=== PATIENT | male | born 1940 | race Caucasian/White ===

== ENCOUNTER 2019-07-30 18:03 | Observation (INO) | payer OTHER ==
[~2019-07-30] VITALS: Ht 177.8 cm; Wt 63.5 kg
[2019-07-30 19:40] LABS: APPEARANCE,URINE CLOUDY (CLEAR); BILIRUBIN,URINE NEGATIVE (NEGATIVE); GLUCOSE, URINE (UA) >=1000 mg/dL (NEGATIVE); KETONES,URINE >=80 mg/dL (NEGATIVE); LEUKOCYTE ESTERASE ,URINE NEGATIVE (NEGATIVE); NITRATE,URINE NEGATIVE (NEGATIVE); OCCULT BLOOD,URINE LARGE (NEGATIVE); PROTEIN,URINE >=300 mg/dL (NEGATIVE); UROBILINOGEN,URINE 0.2 mg/dL (0.2-1.0)
[2019-07-30 19:45] LABS: COLOR,URINE RED (YELLOW)
[2019-07-30 19:47] LABS: BACTERIA,URINE Rare /HPF (None Seen); RBC,URINE Full Field /HPF (0-1); SQUAMOUS EPITHELIAL CELL,UR None Seen /HPF (0-2); WBC,URINE None Seen /HPF (0-1)
[2019-07-30 19:50] LABS: BASOPHILS % (AUTO) 0.6 % (0.0-5.0); EOSINOPHILS % (AUTO) 1.4 % (0.0-8.0); HEMATOCRIT 41.5 % (42-54); LYMPHOCYTES % (AUTO) 17.3 % (21.0-51.0); MEAN CORPUSCULAR HEMOGLOBIN 28.2 pg (27.0-33.0); MEAN CORPUSCULAR HGB CONC 33.3 g/dL (32.0-36.0); MEAN CORPUSCULAR VOLUME 84.9 fL (79-99); NEUTROPHILS % (AUTO) 73.4 % (40.0-77.0); PLATELET COUNT (AUTO) 276 K/uL (130-400); RED BLOOD CELL COUNT(AUTO) 4.89 MIL/uL (4.50-6.20); RED CELL DISTRIBUTION WIDTH 12.1 % (11.0-15.5); WHITE BLOOD COUNT (AUTO) 10.7 K/uL (4.8-10.8)
[2019-07-30 20:07] LABS: INR 0.94 (0.85-1.15); PARTIAL THROMBOPLASTIN TIME 24.3 SEC (26.3-35.5); PROTHROMBIN TIME 9.9 SEC (9.6-11.6)
[2019-07-30 20:08] LABS: ALBUMIN 3.4 g/dL (3.5-5.0); BILIRUBIN,TOTAL 0.4 mg/dL (0.2-1.0); POTASSIUM 4.6 mmol/L (3.5-5.1); TOTAL PROTEIN, SERUM 6.9 g/dL (6.0-8.3)
[2019-07-30] MEDS ORDERED: SODIUM CHLORIDE 0.9% 1000ML 1,000 ML IV ONE ×2 (20:22→22:43)
[2019-07-30] MEDS ORDERED: CEFTRIAXONE SODIUM 1 GM ONE (23:35)
[2019-07-31] MEDS ORDERED: SODIUM CHLORIDE 0.9% 1000ML 1,000 ML IV SCH (00:22)
[2019-07-31] MEDS ORDERED: ACETAMINOPHEN 325 MG TAB PO PRN ×2 (00:30)
[2019-07-31] MEDS ORDERED: LACTULOSE 20 GM/30 ML UDCUP PO PRN (00:30)
[2019-07-31] MEDS ORDERED: MORPHINE SULFATE 2 MG/ML 1ML SYG IV PRN (00:30)
[2019-07-31] MEDS ORDERED: CEFTRIAXONE SODIUM 1 GM IV SCH (00:30)
[2019-07-31] MEDS ORDERED: ONDANSETRON HCL 4 MG/2 ML VIAL IV PRN (00:30)
[2019-07-31] MEDS ORDERED: SODIUM CHLORIDE 0.9% 1000ML 1,000 ML IV ONE (01:07)
[2019-07-31 05:22] LABS: BASOPHILS % (AUTO) 0.5 % (0.0-5.0); EOSINOPHILS % (AUTO) 0.8 % (0.0-8.0); LYMPHOCYTES % (AUTO) 20.5 % (21.0-51.0); MEAN CORPUSCULAR HEMOGLOBIN 28.8 pg (27.0-33.0); MEAN CORPUSCULAR HGB CONC 33.3 g/dL (32.0-36.0); MEAN CORPUSCULAR VOLUME 86.7 fL (79-99); MONOCYTES % (AUTO) 8.6 % (3.0-13.0); NEUTROPHILS % (AUTO) 69.3 % (40.0-77.0); PLATELET COUNT (AUTO) 274 K/uL (130-400); RED BLOOD CELL COUNT(AUTO) 4.96 MIL/uL (4.50-6.20); RED CELL DISTRIBUTION WIDTH 12.1 % (11.0-15.5); WHITE BLOOD COUNT (AUTO) 9.9 K/uL (4.8-10.8)
[2019-07-31 05:57] LABS: CREATININE 0.7 mg/dL (0.5-1.5); POTASSIUM 4.1 mmol/L (3.5-5.1)
[2019-07-31] MEDS ORDERED: INSULIN HUMULIN R 100 UNIT/ML 3ML SQ SCH (07:30)
[2019-07-31] MEDS ORDERED: LUBIPROSTONE 24 MCG CAP PO SCH (08:00)
[2019-07-31] MEDS ORDERED: FAMOTIDINE 20MG TAB 20 MG TAB ONE (08:29)
[2019-07-31] MEDS ORDERED: TAMSULOSIN HCL 0.4 MG CAP.ER.24H ONE (08:30)
[2019-07-31] MEDS ORDERED: DOCUSATE SODIUM 100 MG CAP PO ONE (08:30)
[2019-07-31] MEDS ORDERED: BISACODYL 5 MG TABLET.DR PO ONE (08:30)
[2019-07-31] MEDS ORDERED: DOCUSATE SODIUM 100 MG CAP PO SCH (09:00)
[2019-07-31] MEDS ORDERED: FAMOTIDINE 20MG TAB 20 MG TAB PO SCH (09:00)
[2019-07-31] MEDS ORDERED: TAMSULOSIN HCL 0.4 MG CAP.ER.24H PO SCH (09:00)
[2019-07-31] MEDS ORDERED: BISACODYL 5 MG TABLET.DR PO SCH (09:00)
[2019-07-31 09:37] LABS: HEMOGLOBIN A1C 11.9 % (4.0-6.0)
[2019-07-31] MEDS ORDERED: INSULIN LISPRO 100 UNIT/ML 3ML SQ SCH ×2 (11:30)
[2019-07-31] MEDS ORDERED: GLIP5TAB11 PO (13:45)
[2019-07-31] MEDS ORDERED: METF-444 PO (13:45)
[2019-07-31] MEDS ORDERED: TAMS-1 PO (13:45)
--- NOTE | 2019-07-31 15:43 | NUR ---
CM NOTE PATIENT DISCHARGED TO [facility] AND [facility] VIA [facility]. PATIENT DISCHARGED WITH PRESCRIPTION FOR DIABETES. [facility] FILLED OUT AND GIVEN TO PATIENT. [facility] EDUCATION GIVEN TO PATIENT, PATIENT VERBALIZED UNDERSTANDING.
[2019-07-31] MEDS ORDERED: GLIPIZIDE 5 MG TABLET PO SCH (16:30)
--- NOTE | 2019-07-31 16:53 | NUR ---
INITIAL SW met with patient. Patient states he is homeless by choice. No home services or DME. Patient is independent . [place] [facility]. Patient informed SW that he has been staying at [facility] after being "kicked out" of the [facility]. Patient states he was just asked to leave and not return. Patient reports that he receives $2100 monthly in Social Security Benefits and [employer] combined. SW offered to assist in finding a low cost housing or placement at [facility] but patient refused. SW also educated patient on [place] programs that could help him with finding housing but once again patient refused. He stated that he wants to remain homeless so that he can be free to come and go as he pleases. DCP plan will be back to [facility]. Addendum: 07/31/19 at 1700 by ARSALAN BILL SS Amended: Links added.
[2019-07-31] MEDS ORDERED: METFORMIN HCL 500 MG TABLET PO SCH (17:00)
[2019-07-31] MEDS ORDERED: INSULIN GLARGINE 100 UNITS/ML 10 ML VIAL SQ SCH (21:00)
== END 2019-07-31 15:01 | disposition home or self-care (01) ==
LOC: EDH 18:03 → OBSVTOIN 07-31 00:22 → INTOOBSV 07-31 00:22 → EDHIP 07-31 00:22
PROVIDERS: ADMIT Internal Medicine; ATTEND Internal Medicine
DX: N30.91 Cystitis, unspecified with hematuria (principal); E11.65 Type 2 diabetes mellitus with hyperglycemia; E44.1 Mild protein-calorie malnutrition; Z90.49 Acquired absence of other specified parts of digestive tract
CPT/HCPCS: 36415 ×2; 74176; 76770; 80048; 80053; 81001; 82010; 82948 ×4; 83036; 84145; 85025 ×2; 85610; 85730; 87040 ×2; 87088; 97039; 97161; 99285; G0378 ×15; G8978; G8979; G8980; G8981; G8982; G8983; J0696; J7030 ×3

== ENCOUNTER 2019-10-01 13:13 | Emergency (ER) | payer OTHER ==
[~2019-10-01 13:13] MED LIST: GLIP5TAB11 PO; METF-444 PO; TAMS-1 PO
[2019-10-01 14:04] LABS: BASOPHILS % (AUTO) 0.5 % (0.0-5.0); EOSINOPHILS % (AUTO) 0.5 % (0.0-8.0); HEMATOCRIT 38.5 % (42-54); LYMPHOCYTES % (AUTO) 16.5 % (21.0-51.0); MEAN CORPUSCULAR HEMOGLOBIN 29.7 pg (27.0-33.0); MEAN CORPUSCULAR HGB CONC 33.2 g/dL (32.0-36.0); MEAN CORPUSCULAR VOLUME 89.3 fL (79-99); NEUTROPHILS % (AUTO) 74.1 % (40.0-77.0); PLATELET COUNT (AUTO) 316 K/uL (130-400); RED BLOOD CELL COUNT(AUTO) 4.31 MIL/uL (4.50-6.20); RED CELL DISTRIBUTION WIDTH 12.7 % (11.0-15.5); WHITE BLOOD COUNT (AUTO) 9.6 K/uL (4.8-10.8)
[2019-10-01 14:11] LABS: CREATININE 1.1 mg/dL (0.5-1.5); POTASSIUM 4.2 mmol/L (3.5-5.1)
[2019-10-01] MEDS ORDERED: LIDOCAINE HCL-MPF 1% 2ML VIAL ONE (15:24)
[2019-10-01] MEDS ORDERED: CEFTRIAXONE SODIUM 1 GM ONE (15:24)
== END 2019-10-01 16:01 | disposition home or self-care (01) ==
LOC: EDH 13:13
DX: L03.116 Cellulitis of left lower limb (principal); E11.65 Type 2 diabetes mellitus with hyperglycemia; Z72.0 Tobacco use
CPT/HCPCS: 36415; 80048; 85025; 96372; 99283; J0696; J3490

== ENCOUNTER 2019-10-06 17:17 | Emergency (ER) | payer OTHER ==
[2019-10-06 18:01] LABS: BASOPHILS % (AUTO) 0.5 % (0.0-5.0); EOSINOPHILS % (AUTO) 1.6 % (0.0-8.0); HEMATOCRIT 33.7 % (42-54); LYMPHOCYTES % (AUTO) 18.8 % (21.0-51.0); MEAN CORPUSCULAR HEMOGLOBIN 29.6 pg (27.0-33.0); MEAN CORPUSCULAR HGB CONC 33.2 g/dL (32.0-36.0); MEAN CORPUSCULAR VOLUME 89.2 fL (79-99); MONOCYTES % (AUTO) 8.8 % (3.0-13.0); NEUTROPHILS % (AUTO) 70.1 % (40.0-77.0); PLATELET COUNT (AUTO) 318 K/uL (130-400); RED BLOOD CELL COUNT(AUTO) 3.78 MIL/uL (4.50-6.20); RED CELL DISTRIBUTION WIDTH 12.4 % (11.0-15.5); WHITE BLOOD COUNT (AUTO) 9.3 K/uL (4.8-10.8)
[2019-10-06 18:15] LABS: INR 0.87 (0.85-1.15); POTASSIUM 4.3 mmol/L (3.5-5.1); PROTHROMBIN TIME 9.4 SEC (9.6-11.6)
[2019-10-06 18:17] LABS: ALBUMIN 3.2 g/dL (3.5-5.0); BILIRUBIN,TOTAL 0.2 mg/dL (0.2-1.0); TOTAL PROTEIN, SERUM 6.9 g/dL (6.0-8.3)
[2019-10-06 18:34] LABS: APPEARANCE,URINE Clear (CLEAR); BILIRUBIN,URINE Negative (NEGATIVE); COLOR,URINE Yellow (YELLOW); GLUCOSE, URINE (UA) >=1000 mg/dL (NEGATIVE); KETONES,URINE Negative (NEGATIVE); LEUKOCYTE ESTERASE ,URINE Negative (NEGATIVE); NITRATE,URINE Negative (NEGATIVE); OCCULT BLOOD,URINE Negative (NEGATIVE); PH,URINE 5.5 (5.0-8.0); PROTEIN,URINE Negative (NEGATIVE); UROBILINOGEN,URINE 0.2 mg/dL (0.2-1.0)
[2019-10-06 18:41] LABS: BACTERIA,URINE None Seen /HPF (None Seen); RBC,URINE 0-1 /HPF (0-1); SQUAMOUS EPITHELIAL CELL,UR None Seen /HPF (0-2); WBC,URINE 0-1 /HPF (0-1)
[2019-10-06 18:42] LABS: AMPHET/METH SCREEN,URINE NEGATIVE (NEGATIVE); BARBITURATE SCREEN, URINE NEGATIVE (NEGATIVE); BENZODIAZEPINES SCREEN,URINE NEGATIVE (NEGATIVE); CANNABINOID SCREEN,URINE NEGATIVE (NEGATIVE); COCAINE SCREEN,URINE NEGATIVE (NEGATIVE); OPIATE SCREEN,URINE NEGATIVE (NEGATIVE); PHENCYCLIDINE SCREEN,URINE NEGATIVE (NEGATIVE)
[2019-10-06] MEDS ORDERED: INSULIN HUMULIN R 100 UNIT/ML 3ML ONE (18:57)
[2019-10-06 20:04] LABS: HEMOGLOBIN A1C 11.2 % (4.0-6.0)
== END 2019-10-06 20:48 | disposition home or self-care (01) ==
LOC: EDH 17:17
DX: S80.02XA Contusion of left knee, initial encounter (principal); S40.021A Contusion of right upper arm, initial encounter; S80.211A Abrasion, right knee, initial encounter; E11.9 Type 2 diabetes mellitus without complications; Z87.891 Personal history of nicotine dependence; W18.39XA Other fall on same level, initial encounter; Y93.89 Activity, other specified; Y92.89 Other specified places as the place of occurrence of the external cause; Y99.8 Other external cause status
CPT/HCPCS: 36415; 71045; 73562; 80053; 80305; 81001; 82550; 83036; 84484; 85025; 85610; 85730; 93005; 96374; 99285; J1815

== ENCOUNTER 2019-10-08 18:49 | Emergency (ER) | payer OTHER ==
[2019-10-08 19:27] LABS: BASOPHILS % (AUTO) 0.5 % (0.0-5.0); EOSINOPHILS % (AUTO) 1.7 % (0.0-8.0); HEMATOCRIT 36.3 % (42-54); LYMPHOCYTES % (AUTO) 20.4 % (21.0-51.0); MEAN CORPUSCULAR HEMOGLOBIN 28.7 pg (27.0-33.0); MEAN CORPUSCULAR HGB CONC 32.5 g/dL (32.0-36.0); MEAN CORPUSCULAR VOLUME 88.3 fL (79-99); NEUTROPHILS % (AUTO) 64.9 % (40.0-77.0); PLATELET COUNT (AUTO) 375 K/uL (130-400); RED BLOOD CELL COUNT(AUTO) 4.11 MIL/uL (4.50-6.20); RED CELL DISTRIBUTION WIDTH 12.4 % (11.0-15.5); WHITE BLOOD COUNT (AUTO) 7.7 K/uL (4.8-10.8)
[2019-10-08 19:37] LABS: ALBUMIN 3.4 g/dL (3.5-5.0); BILIRUBIN,TOTAL 0.3 mg/dL (0.2-1.0); TOTAL PROTEIN, SERUM 7.4 g/dL (6.0-8.3)
[2019-10-08] MEDS ORDERED: INSULIN HUMULIN R 100 UNIT/ML 3ML ONE (20:09)
[2019-10-08] MEDS ORDERED: ACETAMINOPHEN 325 MG TAB ONE (20:52)
== END 2019-10-08 22:25 | disposition home or self-care (01) ==
LOC: EDH 18:49
DX: S80.212A Abrasion, left knee, initial encounter (principal); L89.899 Pressure ulcer of other site, unspecified stage; E11.65 Type 2 diabetes mellitus with hyperglycemia; Z87.891 Personal history of nicotine dependence; W18.39XA Other fall on same level, initial encounter; Y93.01 Activity, walking, marching and hiking; Y92.89 Other specified places as the place of occurrence of the external cause; Y99.8 Other external cause status
CPT/HCPCS: 36415; 80053; 85025; 96372; 99283; J1815

== ENCOUNTER 2019-10-11 14:19 | Emergency (ER) | payer OTHER ==
[2019-10-11] MEDS ORDERED: SODIUM CHLORIDE 0.9% 1000ML 1,000 ML IV ONE (14:20)
[2019-10-11 15:11] LABS: ABG OXYGEN SATURATION 40.6 % (95.0-99.0); BASE EXCESS,VENOUS BLOOD GAS 2.1 (-2.0-3.0); PCO2,VENOUS BLOOD GAS 43 (35-48); PH,VENOUS BLOOD GAS 7.413 (7.350-7.450)
[2019-10-11 15:22] LABS: BASOPHILS % (AUTO) 0.4 % (0.0-5.0); EOSINOPHILS % (AUTO) 0.9 % (0.0-8.0); LYMPHOCYTES % (AUTO) 16.9 % (21.0-51.0); MEAN CORPUSCULAR HEMOGLOBIN 29.3 pg (27.0-33.0); MEAN CORPUSCULAR VOLUME 88.7 fL (79-99); MONOCYTES % (AUTO) 10.8 % (3.0-13.0); NEUTROPHILS % (AUTO) 70.8 % (40.0-77.0); PLATELET COUNT (AUTO) 355 K/uL (130-400); RED BLOOD CELL COUNT(AUTO) 3.72 MIL/uL (4.50-6.20); RED CELL DISTRIBUTION WIDTH 12.3 % (11.0-15.5); WHITE BLOOD COUNT (AUTO) 9.6 K/uL (4.8-10.8)
[2019-10-11] MEDS ORDERED: INSULIN HUMULIN R 100 UNIT/ML 3ML ONE (15:23)
[2019-10-11 15:34] LABS: CREATININE 0.9 mg/dL (0.5-1.5); POTASSIUM 4.4 mmol/L (3.5-5.1)
[2019-10-11 15:35] LABS: INR 0.9 (0.85-1.15); PARTIAL THROMBOPLASTIN TIME 25.4 SEC (26.3-35.5); PROTHROMBIN TIME 9.8 SEC (9.6-11.6)
[2019-10-11 15:39] LABS: BILIRUBIN,TOTAL 0.2 mg/dL (0.2-1.0); TOTAL PROTEIN, SERUM 6.6 g/dL (6.0-8.3)
[2019-10-11 17:24] LABS: APPEARANCE,URINE Clear (CLEAR); BILIRUBIN,URINE Negative (NEGATIVE); COLOR,URINE Yellow (YELLOW); GLUCOSE, URINE (UA) >=1000 mg/dL (NEGATIVE); KETONES,URINE Negative (NEGATIVE); LEUKOCYTE ESTERASE ,URINE Negative (NEGATIVE); NITRATE,URINE Negative (NEGATIVE); OCCULT BLOOD,URINE Negative (NEGATIVE); PH,URINE 6.5 (5.0-8.0); PROTEIN,URINE Negative (NEGATIVE); UROBILINOGEN,URINE 0.2 mg/dL (0.2-1.0)
[2019-10-11 17:33] LABS: BACTERIA,URINE Rare /HPF (None Seen); RBC,URINE 0-1 /HPF (0-1); SQUAMOUS EPITHELIAL CELL,UR Rare /HPF (0-2); WBC,URINE 0-1 /HPF (0-1)
== END 2019-10-11 18:39 | disposition home or self-care (01) ==
LOC: EDH 14:19
DX: E11.65 Type 2 diabetes mellitus with hyperglycemia (principal); E11.40 Type 2 diabetes mellitus with diabetic neuropathy, unspecified
CPT/HCPCS: 36415; 36600; 71045; 80053; 81001; 82010; 82435; 82550; 82803; 82947; 82948 ×2; 83605; 83690; 84132; 84295; 84484; 85025; 85610; 85730; 93005; 96361; 96374; 99285; J1815; J7030

== ENCOUNTER 2019-10-21 11:43 | Emergency (ER) | payer OTHER ==
[2019-10-21] MEDS ORDERED: ONDANSETRON HCL 4 MG/2 ML VIAL ONE (12:04)
[2019-10-21 12:33] LABS: POTASSIUM 3.7 mmol/L (3.5-5.1)
[2019-10-21 12:36] LABS: BILIRUBIN,TOTAL 0.4 mg/dL (0.2-1.0); TOTAL PROTEIN, SERUM 6.9 g/dL (6.0-8.3)
[2019-10-21 12:37] LABS: CREATININE 1.1 mg/dL (0.5-1.5)
[2019-10-21 12:39] LABS: BASOPHILS % (AUTO) 0.5 % (0.0-5.0); EOSINOPHILS % (AUTO) 8.5 % (0.0-8.0); HEMATOCRIT 35.2 % (42-54); LYMPHOCYTES % (AUTO) 16.2 % (21.0-51.0); MEAN CORPUSCULAR HEMOGLOBIN 28.9 pg (27.0-33.0); MEAN CORPUSCULAR HGB CONC 32.7 g/dL (32.0-36.0); MEAN CORPUSCULAR VOLUME 88.4 fL (79-99); MONOCYTES % (AUTO) 6.8 % (3.0-13.0); NEUTROPHILS % (AUTO) 67.7 % (40.0-77.0); PLATELET COUNT (AUTO) 345 K/uL (130-400); RED BLOOD CELL COUNT(AUTO) 3.98 MIL/uL (4.50-6.20); RED CELL DISTRIBUTION WIDTH 12.2 % (11.0-15.5); WHITE BLOOD COUNT (AUTO) 9.3 K/uL (4.8-10.8)
[2019-10-21] MEDS ORDERED: INSULIN HUMULIN R 100 UNIT/ML 3ML ONE (13:03)
--- NOTE | 2019-10-21 13:05 | NUR ---
HOMELESS BY CHOICE Darrell contacted by ER regarding pt being homeless. Sw reviewed notes from admission on 07/31/19. Per DARRELL notes, pt stated he was homeless by choice. Pt has $2100 income per month, but prefers to be on streets so he can come and go has he pleases. Pt was educated on options thru [facility] and or community resources and pt refused. Nurse Sera made aware of notes.
[2019-10-21 13:19] LABS: ABG OXYGEN SATURATION 53.7 % (95.0-99.0); BASE EXCESS,VENOUS BLOOD GAS -1.2 (-2.0-3.0); HCO3,VENOUS BLOOD GAS 24.5 (21.0-28.0); PCO2,VENOUS BLOOD GAS 45 (35-48); PH,VENOUS BLOOD GAS 7.359 (7.350-7.450)
== END 2019-10-21 17:41 | disposition home or self-care (01) ==
LOC: EDH 11:43
DX: E86.0 Dehydration (principal); E11.65 Type 2 diabetes mellitus with hyperglycemia; Z87.891 Personal history of nicotine dependence
CPT/HCPCS: 36415; 36600; 71045; 80053; 82550; 82803; 84484; 85025; 93005; 96361; 96374; 96375; 99285; J1815; J2405

== ENCOUNTER 2019-10-28 09:21 | Emergency (ER) | payer OTHER | END 2019-10-28 09:56 | disposition home or self-care (01) | LOC: EDH 09:21 | DX: L03.114 Cellulitis of left upper limb (principal); E11.9 Type 2 diabetes mellitus without complications; Z72.0 Tobacco use ==

== ENCOUNTER 2019-10-28 14:59 | Emergency (ER) | payer OTHER ==
[2019-10-28] MEDS ORDERED: SODIUM CHLORIDE IRRIG SOLUTION 1,000 ML IR ONE (15:00)
[2019-10-28 15:52] LABS: BASOPHILS % (AUTO) 0.5 % (0.0-5.0); EOSINOPHILS % (AUTO) 0.8 % (0.0-8.0); HEMATOCRIT 36.5 % (42-54); LYMPHOCYTES % (AUTO) 14.6 % (21.0-51.0); MEAN CORPUSCULAR HGB CONC 33.4 g/dL (32.0-36.0); MEAN CORPUSCULAR VOLUME 86.9 fL (79-99); MONOCYTES % (AUTO) 6.2 % (3.0-13.0); NEUTROPHILS % (AUTO) 77.5 % (40.0-77.0); PLATELET COUNT (AUTO) 371 K/uL (130-400); RED CELL DISTRIBUTION WIDTH 11.9 % (11.0-15.5); WHITE BLOOD COUNT (AUTO) 11.5 K/uL (4.8-10.8)
[2019-10-28 16:03] LABS: CREATININE 0.9 mg/dL (0.5-1.5); POTASSIUM 3.8 mmol/L (3.5-5.1)
[2019-10-28 16:08] LABS: BILIRUBIN,DIRECT 0.1 mg/dL (0.0-0.3); BILIRUBIN,TOTAL 0.4 mg/dL (0.2-1.0); TOTAL PROTEIN, SERUM 7.4 g/dL (6.0-8.3)
[2019-10-28 16:31] LABS: ABG BASE EXCESS -2.8 mmol/L (-2.0-3.0); ABG HCO3 22.3 mmol/L (21.0-28.0); ABG PCO2 40 mmHg (35-48)
[2019-10-28] MEDS ORDERED: ONDANSETRON HCL 4 MG/2 ML VIAL ONE (16:40)
== END 2019-10-28 19:29 | disposition home or self-care (01) ==
LOC: EDH 14:59
DX: R53.1 Weakness (principal); E11.9 Type 2 diabetes mellitus without complications
CPT/HCPCS: 36415; 36600; 80048; 80076; 82550; 82803; 84484; 85025; 93005; 96374; 99284; J2405; 96361

== ENCOUNTER 2019-10-30 19:44 | Emergency (ER) | payer OTHER | END 2019-10-30 20:41 | disposition home or self-care (01) | LOC: EDH 19:44 | DX: I10 Essential (primary) hypertension (principal); E11.9 Type 2 diabetes mellitus without complications ==

== ENCOUNTER 2019-10-31 14:13 | Emergency (ER) | payer OTHER ==
[2019-10-31 15:22] LABS: BASOPHILS % (AUTO) 0.7 % (0.0-5.0); EOSINOPHILS % (AUTO) 1.1 % (0.0-8.0); HEMATOCRIT 32.9 % (42-54); LYMPHOCYTES % (AUTO) 15.8 % (21.0-51.0); MEAN CORPUSCULAR HGB CONC 33.1 g/dL (32.0-36.0); MEAN CORPUSCULAR VOLUME 87.5 fL (79-99); MONOCYTES % (AUTO) 8.5 % (3.0-13.0); NEUTROPHILS % (AUTO) 73.6 % (40.0-77.0); PLATELET COUNT (AUTO) 335 K/uL (130-400); RED BLOOD CELL COUNT(AUTO) 3.76 MIL/uL (4.50-6.20); RED CELL DISTRIBUTION WIDTH 12.1 % (11.0-15.5); WHITE BLOOD COUNT (AUTO) 8.9 K/uL (4.8-10.8)
[2019-10-31 15:36] LABS: ALBUMIN 2.4 g/dL (3.5-5.0); BILIRUBIN,TOTAL 0.2 mg/dL (0.2-1.0); CREATININE 0.8 mg/dL (0.5-1.5); POTASSIUM 3.8 mmol/L (3.5-5.1); TOTAL PROTEIN, SERUM 6.2 g/dL (6.0-8.3)
[2019-10-31] MEDS ORDERED: INSULIN HUMULIN R 100 UNIT/ML 3ML ONE (15:54)
== END 2019-10-31 17:49 | disposition home or self-care (01) ==
LOC: EDH 14:13
DX: E11.65 Type 2 diabetes mellitus with hyperglycemia (principal); R53.1 Weakness
CPT/HCPCS: 36415; 80053; 82010; 82550; 82948; 84484; 85025; 93005; 96374; 99284; J1815

== ENCOUNTER 2019-11-03 15:18 | Emergency (ER) | payer OTHER | END 2019-11-03 16:02 | disposition home or self-care (01) | LOC: EDH 15:18 | DX: S51.801A Unspecified open wound of right forearm, initial encounter (principal); Z87.891 Personal history of nicotine dependence; W57.XXXA Bitten or stung by nonvenomous insect and other nonvenomous arthropods, initial encounter; Y93.89 Activity, other specified; Y92.89 Other specified places as the place of occurrence of the external cause; Y99.8 Other external cause status ==

== ENCOUNTER 2019-11-05 15:29 | Emergency (ER) | payer OTHER | END 2019-11-05 16:30 | disposition home or self-care (01) | LOC: EDH 15:29 | DX: Z00.00 Encounter for general adult medical examination without abnormal findings (principal); E11.9 Type 2 diabetes mellitus without complications ==

== ENCOUNTER 2019-11-06 21:15 | Emergency (ER) | payer OTHER ==
[2019-11-06] MEDS ORDERED: SODIUM CHLORIDE 0.9% 1000ML 1,000 ML IV ONE (21:16)
[2019-11-06 21:52] LABS: BASOPHILS % (AUTO) 0.5 % (0.0-5.0); EOSINOPHILS % (AUTO) 1.2 % (0.0-8.0); LYMPHOCYTES % (AUTO) 20.4 % (21.0-51.0); MEAN CORPUSCULAR HEMOGLOBIN 28.9 pg (27.0-33.0); MEAN CORPUSCULAR HGB CONC 32.9 g/dL (32.0-36.0); MEAN CORPUSCULAR VOLUME 87.6 fL (79-99); MONOCYTES % (AUTO) 7.2 % (3.0-13.0); NEUTROPHILS % (AUTO) 70.5 % (40.0-77.0); PLATELET COUNT (AUTO) 338 K/uL (130-400); RED BLOOD CELL COUNT(AUTO) 3.88 MIL/uL (4.50-6.20); RED CELL DISTRIBUTION WIDTH 12.2 % (11.0-15.5); WHITE BLOOD COUNT (AUTO) 9.9 K/uL (4.8-10.8)
[2019-11-06 22:01] LABS: POTASSIUM 3.8 mmol/L (3.5-5.1)
[2019-11-06 22:08] LABS: BILIRUBIN,TOTAL 0.4 mg/dL (0.2-1.0); TOTAL PROTEIN, SERUM 7.1 g/dL (6.0-8.3)
== END 2019-11-06 22:48 | disposition home or self-care (01) ==
LOC: EDH 21:15
DX: R53.1 Weakness (principal); E11.9 Type 2 diabetes mellitus without complications; Z59.0 Homelessness
CPT/HCPCS: 36415; 80053; 82550; 84484; 85025; 93005; 99284; J7030